=== PATIENT | male | born 1995 | race Caucasian/White ===

== ENCOUNTER 2022-09-30 18:58 | Emergency (ER) | payer MEDICAID, SELFPAY ==
[2022-09-30 19:13] VITALS: BP 129/83; PULSE 93; RESP 18; TEMP 36.9; O2SAT 95; BMI 22.0
--- NOTE | 2022-09-30 19:20 | ED.GENADULT ---
HPI - General Adult General Time Seen by Provider: 19:20 Date Seen: 09/30/22 Chief complaint: Cough Stated complaint: Asthma Attack Time Seen by Provider: 09/30/22 19:14 Source: patient Mode of arrival: ambulatory Limitations: no limitations History of Present Illness HPI narrative: 26-year-old male with history of asthma presents with shortness of breath for the last 2 months. He attributes this to working an a [employer] environment. Using his inhaler multiple times during the night. Denies chest pain. Has some cough and then had some blood streaking today which is prompting him to present to the emergency room. No leg swelling, no fevers. Related Data Home Medications Medication Instructions Recorded Confirmed albuterol sulfate 90 mcg/actuation 2 inhalation PRN 05/13/22 05/13/22 aerosol inhaler buprenorphine 2 mg-naloxone 0.5 mg 1 film sublingual DAILY 05/13/22 05/13/22 sublingual film bupropion HCl 75 mg tablet See Rx Instructions .Route .COMPLEX 05/13/22 05/13/22 fluoxetine 10 mg capsule 10 mg PO DAILY 05/13/22 05/13/22 fluticasone 100 mcg-salmeterol 50 1 inhalation BID 05/13/22 05/13/22 mcg/dose blistr powdr for inhalation guaifenesin 200 mg tablet 200 mg PO PRN 05/13/22 05/13/22 hydroxyzine pamoate 25 mg capsule 25 mg PO PRN 05/13/22 05/13/22 quetiapine 50 mg tablet 50 mg PO .Bedtime 05/13/22 05/13/22 Allergies Allergy/AdvReac Type Severity Reaction Status Date / Time No Known Allergies Allergy Unknown Verified 09/30/22 19:13 Review of Systems Status of ROS: Reports: 10 or more systems reviewed and unremarkable except as noted in History and below PFSH PFSH Medical History History of methicillin resistant Staphylococcus aureus infection History of smoking Social History Smoking Status: Current every day smoker What tobacco products do you use: cigarettes Smoking packs per day: 0.5 Smoking cigarettes per day: 10.0 Years smoked: 15 Smoking pack-years: 7.50 Do you use any of these nicotine containing products: None Second hand tobacco smoke exposure: No How often do you have a drink containing alcohol: never How often do you have six or more drinks on one occasion: Never AUDIT-C Alcohol total score: 0 Non-prescribed substance use: denies use service: No Exam Narrative: Exam Narrative: General: Well-developed and well-nourished, no acute distress Head: Atraumatic and normocephalic Eyes: Pupils are equal reactive, extraocular motions intact, conjunctiva clear ENT: External nose and ears are normal, posterior pharynx without erythema or exudate Neck: No midline cervical tenderness, full spontaneous range of motion the neck, trachea midline, no adenopathy Heart: Regular rate and rhythm no murmurs or thrills Lungs: Clear to auscultation bilaterally without wheezes or crackles. Patient with upper airway coarse expiratory breath sounds when asked to breathe deeply but silent when breathing, no stridor Abdomen: Soft, nontender, nondistended with active bowel sounds Musculoskeletal: No tenderness, deformity, or edema Neurologic: Awake, alert, and oriented x3, no gross focal neurologic deficits, cranial nerves intact as tested Psych: Mood and affect are appropriate Skin: No rashes Const: Vital Signs, click to edit/add: Vital Signs - 24 hr 09/30/22 19:13 09/30/22 20:00 Temperature 98.4 F Pulse Rate [Pulse Oximeter] 93 88 Respiratory Rate 18 18 Blood Pressure [Ri ght Upper Arm] 129/83 130/84 Pulse Oximetry 95 96 Oxygen Delivery Me thod Room Air Room Air Course Course Hospital Course: Patient seen and examined, prior records reviewed. Patient with history of asthma comes in with shortness of breath the last 2 months, blood-streaked sputum today which prompted visit. On exam here, vital is stable with no tachycardia or hypoxia, perc negative. Lungs are clear other than upper airway sounds which patient is able to silence when breathing normally. Chest x-ray is ordered along with DuoNeb. If chest x-ray is negative, plan to discharge with prednisone burst and albuterol inhaler, patient is to establish follow-up this sounds like his asthma may be very poorly controlled and he may need a controller medication. Reevaluation(s) Reevaluation #1: Chest x-rays negative, influenza, COVID, in our severe negatives well. Symptoms are most consistent with poorly controlled asthma, small volume of hemoptysis likely from bronchial irritation. Patient will be prescribed a new inhaler and started on prednisone, follow-up with primary care to work on asthma control and action plan. Time: 20:34 Vital Signs Vital signs: Initial Vital Signs Temperature 98.4 F 09/30/22 19:13 Temperature Source Temporal Artery Scan 09/30/22 19:13 Pulse Rate 93 09/30/22 19:13 Pulse Rhythm 09/30/22 19:13 Respiratory Rate 18 09/30/22 19:13 Blood Pressure 129/83 09/30/22 19:13 Blood Pressure Mean 98 09/30/22 19:13 Pulse Oximetry 95 09/30/22 19:13 Oxygen Delivery Method 09/30/22 19:13 Vital Signs Temperature 98.4 F 09/30/22 19:13 Pulse Rate 93 09/30/22 19:13 Respiratory Rate 18 09/30/22 19:13 Blood Pressure 129/83 09/30/22 19:13 Pulse Oximetry 95 09/30/22 19:13 Oxygen Delivery Method 09/30/22 19:13 Temperature 98.4 F 09/30/22 19:13 Pulse Rate 88 09/30/22 20:00 Respiratory Rate 18 09/30/22 20:00 Blood Pressure 130/84 09/30/22 20:00 Pulse Oximetry 96 09/30/22 20:00 Oxygen Delivery Method 09/30/22 20:00 Medical Decision Making Medical Records Medical records reviewed: Yes I reviewed the patient's medical records Lab Data Lab results reviewed: Yes I reviewed the patient's lab results Labs: Lab Results 09/30/22 Range/Units 19:22 SARS-CoV-2 (PCR) Negative SARS-CoV-2 (Negative) Influenza Type A (PCR) Negative PCR FLU A (Negative) Influenza Type B (PCR) Negative PCR FLU B (Negative) RSV (PCR) Negative PCR RSV (Negative) Imaging Data Chest x-ray: Attestation: I have reviewed the pertinent imaging results. My impression: No acute infiltrates or effusions, no pneumothorax, negative x-ray Discharge Plan Discharge Clinical Impression: Exacerbation of asthma, Poorly controlled persistent asthma Patient Disposition: Home, Self-Care Condition: Stable Instructions: Asthma (DC), How to Use a Metered-Dose Inhaler (ED) Additional Instructions: Take prednisone as prescribed. Use albuterol inhaler or nebulizer every 2 hours while awake for 24 hours, then every 3 hours while awake for 24 hours, then every 4 hours as needed Activity Level: No Restrictions Prescriptions: No Action buprenorphine-naloxone 2-0.5 mg film 1 film sublingual DAILY quetiapine 50 mg tablet 50 mg PO .Bedtime hydroxyzine pamoate 25 mg capsule 25 mg PO PRN albuterol sulfate 90 mcg/actuation HFA aerosol inhaler 2 inhalation PRN fluoxetine 10 mg capsule 10 mg PO DAILY bupropion HCl 75 mg tablet See Rx Instructions .ROUTE .COMPLEX Rx Instructions: Unknown; administer 6 hours apart fluticasone propion-salmeterol 100-50 mcg/dose blister with device 1 inhalation BID guaifenesin 200 mg tablet 200 mg PO PRN Follow Up/Referrals: Micah Lai MD [Primary Care Provider] - Stand Alone Forms: [employer] Info Instructions
--- NOTE | 2022-09-30 19:37 | CRLHL7_ITS ---
For Patients: As a result of the Cures Act, medical imaging exams and procedure reports are released immediately into your electronic medical record. You may view this report before your referring provider. If you have questions, please contact your health care provider. INDICATION: Hemoptysis. TECHNIQUE: Chest 2 views. COMPARISON: Chest x-ray from 09/21/2020. FINDINGS: Lungs: Clear lungs. No consolidation. Pleura: No pleural effusion or pneumothorax. Heart and Mediastinum: The cardiomediastinal silhouette is normal. The vessels are unremarkable. Bones: Unremarkable. IMPRESSION: No acute cardiopulmonary disease. Dictated by Andrew Barlow MD @ 09/30/2022 8:34:25 PM (Electronically Signed)
[2022-09-30] MEDS: predniSONE 20 MG TABLET 40 MG PO (19:43)
[2022-09-30] MEDS: IPRAT-ALBUT 0.5-2.5 MG/3 ML NEB 1 NEB IH (19:44)
[2022-09-30 20:00] VITALS: BP 130/84; PULSE 88; RESP 18; O2SAT 96
[2022-09-30 20:11] LABS: PCR FLU A Negative PCR FLU A (Negative); PCR FLU B Negative PCR FLU B (Negative); PCR RSV Negative PCR RSV (Negative)
[2022-09-30 20:23] LABS: SARS PCR* Negative SARS-CoV-2 (Negative)
== END 2022-09-30 21:02 | disposition home or self-care (01) ==
LOC: ED 20:42
PROVIDERS: Emergency Provider Family Medicine
DX: J45.901 Unspecified asthma with (acute) exacerbation (principal)
CPT/HCPCS: 71046; 87502; 87634; 87635; 94640; 99283; 99284; J7512

== ENCOUNTER 2022-11-28 11:45 | Outpatient (CLI) | payer MEDICAID, SELFPAY | END 2022-11-28 11:46 | disposition home or self-care (01) | LOC: AMB 11-30 09:04 | PROVIDERS: Visit Provider Family Medicine | DX: R45.851 Suicidal ideations (principal) | CPT/HCPCS: A0425; A0429 ==

== ENCOUNTER 2022-11-28 12:05 | Emergency (ER) | payer MEDICAID, SELFPAY ==
[2022-11-28 12:15] VITALS: BP 126/79; PULSE 122; RESP 16; TEMP 37.7; O2SAT 93; BMI 20.9
--- NOTE | 2022-11-28 13:02 | ED_ITS ---
HPI - General Adult General Chief complaint: Overdose Stated complaint: Overdose Time Seen by Provider: 11/28/22 12:18 Source: patient, family, EMS and police Mode of arrival: EMS Limitations: altered mental status (Substance abuse) History of Present Illness HPI narrative: 27-year-old male presents to the emergency department by EMS and police. EMS and please for called by housemates which per report had also been using opiates. Jayant admits to a longstanding history of injectable IV opiates. He reports that he is scheduled to start an inpatient drug treatment program tomorrow, his family reiterates that he missed that appointment and is not aware that he is no longer set to be enrolled. This was supposed to be an outpatient day program. He reports that he has attempted drawn treatment multiple times in the past. Mother arrives to the ED agitated and threatening to Sandrine us shortly after jayant's arrival. She reports that his friends called her to report that Jayant is depressed and that he is using injectable drugs to treat his depression. To me, Jayant denies this. He is answering questions appropriately, he does not remember saying any of these things. He states that he is in treatment for his depression and does feel like things are going pretty well with this. He says he still ?getting use to his new meds?. He is not feeling acutely ill today, denies any self injury. Denies prior hospitalizations for suicide attempt or ideation. He states that he was hospitalized for mood issues at age 16 or 17 at [facility] but he does not remember the specific details. He admits to regular use of IV injectable heroin and daily use of marijuana. He looks back to his home to try to see if there were any text that would of made his family more concerned. He denies any escalating family, relationship or other problems. He reports that he does have a significant other but states that they are ?on a break right now? because of his substance use. He reports that his significant other is ?clean?. He states that the last time that he used opiates was this morning at around 7:00 a.m., his mother states that it was around 10:00 a.m.. I did get a chance to briefly speak with the patient's psychiatrist. Patient's mother called her during my interview. Highlights the psychiatrist know that Jayant is not endorsing any suicidal ideation to me today. She has offered to speak with him. We will facilitate this. He states he has a history of psoriatic arthritis and depression, denies any other long-term health problems. He states that his current long-term medications are mirtazapine 30 mg at bedtime and albuterol 3 times a week. He also reports use of gabapentin 800 mg a couple of times per week for leg pain related to his psoriatic arthritis. Socially I am states that he lives with his parents, regular IV fentanyl verses heroin. Daily marijuana. Denies any recent alcohol use. He does not believe that he needs to be hospitalized for his moods at this time. ROS is negative times 12 systems per patient. Related Data Home Medications Medication Instructions Recorded Confirmed albuterol sulfate 90 mcg/actuation 2 inhalation PRN 05/13/22 05/13/22 aerosol inhaler buprenorphine 2 mg-naloxone 0.5 mg 1 film sublingual DAILY 05/13/22 05/13/22 sublingual film bupropion HCl 75 mg tablet See Rx Instructions .Route .COMPLEX 05/13/22 05/13/22 fluoxetine 10 mg capsule 10 mg PO DAILY 05/13/22 05/13/22 fluticasone 100 mcg-salmeterol 50 1 inhalation BID 05/13/22 05/13/22 mcg/dose blistr powdr for inhalation guaifenesin 200 mg tablet 200 mg PO PRN 05/13/22 05/13/22 hydroxyzine pamoate 25 mg capsule 25 mg PO PRN 05/13/22 05/13/22 quetiapine 50 mg tablet 50 mg PO .Bedtime 05/13/22 05/13/22 Remeron 11/28/22 albuterol sulfate 2.5 mg/3 mL mg 11/28/22 (0.083 %) solution for nebulization clonazepam 0.5 mg tablet mg 11/28/22 gabapentin 100 mg capsule mg 11/28/22 mirtazapine 11/28/22 Allergies Allergy/AdvReac Type Severity Reaction Status Date / Time No Known Allergies Allergy Unknown Verified 09/30/22 19:13 [facility] Medical History History of methicillin resistant Staphylococcus aureus infection History of smoking Social History Smoking Status: Current every day smoker What tobacco products do you use: cigarettes Smoking packs per day: 0.5 Smoking cigarettes per day: 10.0 Years smoked: 15 Smoking pack-years: 7.50 Do you use any of these nicotine containing products: None Second hand tobacco smoke exposure: No How often do you have a drink containing alcohol: never How often do you have six or more drinks on one occasion: Never AUDIT-C Alcohol total score: 0 Non-prescribed substance use: denies use and opiods/painkillers service: No Exam Const: Vital Signs, click to edit/add: Vital Signs - 24 hr 11/28/22 12:15 Temperature 100 F H Pulse Rate [Pulse Oximeter] 122 H Respiratory Rate 16 Blood Pressure [Ri ght Upper Arm] 126/79 Pulse Oximetry 93 Oxygen Delivery Me thod Room Air Documenting provider has reviewed patient's vital signs: yes General appearance: cooperative Other: Restless but makes good eye contact. Apologizes frequently for yawning. Says that he feels fatigued but can not answer my questions appropriately. Appears well nourished, well hydrated and well groomed. HENMT: Common normals: normocephalic and head/scalp atraumatic Head and scalp: normocephalic and atraumatic Mouth: oral and palatal mucosa normal Throat: posterior oropharynx normal Eye: Common normals: conjunctivae normal General eye: normal appearance of both eyes Conjunctiva: conjunctiva(e) normal Neck & C-Spine: Common normals: full ROM and no lymphadenopathy Chest: Common normals: inspection of chest normal Resp: Common normals: normal respiratory effort and no use of accessory muscles Other: Mild expiratory wheeze only but normal respiratory effort Cardio: Common normals: regular rate, regular rhythm, S1 normal heart sound, S2 normal heart sound, no murmurs and peripheral pulses 2+ throughout Rate: regular rate Rhythm: regular rhythm Heart sounds: S1 normal and S2 normal Peripheral pulses: pulses 2+ throughout GI: Common normals: Normal to inspection, nondistended, normoactive bowel sounds present and no hepatosplenomegaly Palpation: no hepatosplenomegaly Extremity: Common normals: normal to inspection and normal capillary refill Neuro: Motor exam: no tremor noted and no movement abnormalities noted Psych: Other: Restless but cooperative. No agitation. Insight is fair to limited judgment seems fair. Skin: Common normals: no wounds and no jaundice Course Vital Signs Vital signs: Initial Vital Signs Temperature 100 F H 11/28/22 12:15 Temperature Source Temporal Artery Scan 11/28/22 12:15 Pulse Rate 122 H 11/28/22 12:15 Respiratory Rate 16 11/28/22 12:15 Blood Pressure 126/79 11/28/22 12:15 Blood Pressure Mean 94 11/28/22 12:15 Blood Pressure Position Supine 11/28/22 12:15 Pulse Oximetry 93 11/28/22 12:15 Oxygen Delivery Method 11/28/22 12:15 Vital Signs Temperature 100 F H 11/28/22 12:15 Pulse Rate 122 H 11/28/22 12:15 Respiratory Rate 16 11/28/22 12:15 Blood Pressure 126/79 11/28/22 12:15 Pulse Oximetry 93 11/28/22 12:15 Oxygen Delivery Method 11/28/22 12:15 Temperature 100 F H 11/28/22 12:15 Pulse Rate 122 H 11/28/22 12:15 Respiratory Rate 16 11/28/22 12:15 Blood Pressure 126/79 11/28/22 12:15 Pulse Oximetry 93 11/28/22 12:15 Oxygen Delivery Method 11/28/22 12:15 Medical Decision Making MDM Narrative Medical decision making narrative: Reported suicidal ideation which patient is currently denying now that he is no longer ?high?. Will have patient speak with his psychiatrist. At this time I am not seeing enough criteria to hold him. Order dec consult, await their recommendations. Kimberly Cheema, patient's psychiatric provider was willing to consult with patient and myself over the phone. I was thankful for her insight. She agrees that he is not holdable at this time. She has cleared him for discharge. She agreed contact the patient's mother to relay this information. I have spoken with the patient, he would like to go home. He reiterates once again that he is not suicidal. He says that he will continue to seek drug treatment and has no additional concerns at this time. He is answering questions appropriately is reasonable as not exhibiting any type of psychosis or aggressive behavior. He will be discharged. Critical Care Time Critical Care Time Total Critical Care Time in Minutes: 45 (Spent in consult with family, patient's psychiatric provider, unable to attend the needs of other patients during this time.) Discharge Plan Discharge Clinical Impression: Acute substance intoxication, Substance induced mood disorder Patient Disposition: Home w/ Parent or Adult Additional Instructions: I agree with the assessment from your psychiatry provider, Kimberly Cheema. At this time, you do not meet criteria to be held against your will for mental health disease. Your not suicidal at this time. According to your mother, you have missed your appointment last week for substance disorder treatment. I would encourage you to re-explore this. You declined interventions for substance treatment at this time. You have been assessed and are cleared for discharge at this time. Activity Level: No Restrictions Discharge Diet: Regular Prescriptions: No Action buprenorphine-naloxone 2-0.5 mg film 1 film sublingual DAILY quetiapine 50 mg tablet 50 mg PO .Bedtime hydroxyzine pamoate 25 mg capsule 25 mg PO PRN albuterol sulfate 90 mcg/actuation HFA aerosol inhaler 2 inhalation PRN fluoxetine 10 mg capsule 10 mg PO DAILY bupropion HCl 75 mg tablet See Rx Instructions .ROUTE .COMPLEX Rx Instructions: Unknown; administer 6 hours apart fluticasone propion-salmeterol 100-50 mcg/dose blister with device 1 inhalation BID guaifenesin 200 mg tablet 200 mg PO PRN gabapentin 100 mg capsule Label Comments: TAKE 1 CAPSULE BY MOUTH THREE TIMES DAILY NEEDED FOR ANXIETY Remeron mirtazapine albuterol sulfate 2.5 mg /3 mL (0.083 %) solution for nebulization clonazepam 0.5 mg tablet Label Comments: TAKE 1 TABLET BY MOUTH ONCE A DAY NEEDED Follow Up/Referrals: Provider,Not a Local [Primary Care Provider] - Stand Alone Forms: [email or web address] Info Instructions
== END 2022-11-28 14:03 | disposition home or self-care (01) ==
PROVIDERS: Emergency Provider Family Medicine
DX: F19.94 Other psychoactive substance use, unspecified with psychoactive substance-induced mood disorder (principal)
CPT/HCPCS: 99282; 99284; 99291

== ENCOUNTER 2025-09-16 05:07 | Emergency (ER) | payer MEDICAID, SELFPAY ==
--- OUTSIDE RECORDS SUMMARY | 2010-11-10 03:00 | XMS_ITS | Continuity of Care Document ---
Author Organization [facility] Address [address] [address] [place] [address] Phone Care Team Providers Care Mandarin Tutor Name Role Phone Unavailable Unavailable Unavailable Allergies, Adverse Reactions, Alerts Substance Reaction Status Criticality No Known allergies Medications Medication Instructions Dosage Effective Dates (start - stop) Status Comments Wellbutrin XL 300 mg 24 hr Tab take 1 tablet (300MG) by oral route every day 300 MG - Active Abilify 15 mg Tab take 0.5 tablet (7.5MG) by oral route every day 7.5 MG - Active ondansetron HCl 8 mg Tab take 1 tablet (8MG) by oral route every day - Active multivitamin Tab take 1 Tablet by ORAL route every day 1.00 Tablet - Active Fish Oil 1,000 mg Cap take 2 Capsule by Oral route every day - Active AMBIEN (unknown strength) take 1 tablet by oral route every day at bedtime as needed Not Available - Active Allergy Shots unknown weekly shots - Active Nexium 40 mg Cap take 1 capsule (40MG) by oral route every day 40 MG - Active omeprazole 20 mg Cap, Delayed Release take 1 capsule (20MG) by oral route every day before a meal 20 MG - No Longer Active Procedures Procedure Date Offic Cons New/estab Mod [id number] Advance Directives Directive Yes / No Effective Date File Name Resuscitation Not Answered N/A N/A Life Support Not Answered N/A N/A Intubation Not Answered N/A N/A Antibiotics Not Answered N/A N/A IV Fluid Support Not Answered N/A N/A Tube Feed Not Answered N/A N/A Other Directive N/A N/A WARNING:The information contained in this section is historical and is provided for information only and does not constitute a legal document or any assurance that the information is still accurate. Please verify the information with the méndez of the legal document before using it for clinical purposes. Encounters Encounter Description Practice Location Reason(s) For Visit Diagnoses Date Provider Providers Copied on Encounter Offic Cons New/estab Mod [facility] [address] [address], [place], [place], [id number], tel:[phone] [facility] Diarrhea (chief complaint)N ausea (chief complaint) Vomiting Alone No Information Family History Family Member Type Diagnosis Age At Onset First degree family history Problem (finding) No histo ry of Crohn's Paternal grandfather Problem (finding) alcoholism First degree family history Problem (finding) No history of Colon Rectal Cancer First degree family history Problem (finding) No Family history of No history of Colon Polyps First degree family history Problem (finding) GERD First degree family history Problem (finding) No history of Ulcerative Colitis Payers Payer name Insurance type Covered constitution party ID Authoriza tion(s) [facility] [id number] Social History Type Description Quantity Date Captured Comments Alcohol Use Details Unknown Caffeine Use Details Unknown Tobacco Use Status No Information Smoking Status No Information Sex Male Chief Complaint And Reason For Visit From encounter dated '11/10/2010 09:00'. Diarrhea (chief complaint) Nausea (chief complaint) Reason For Referral Reason For Referral No Information History Of Present Illness Encounter Date Complaint History Of Prese nt Illness No Information Functional Status Date Functional Assessmen t No Information Medications Administered Medication Instructions Dosage Effective Dates (start - stop) Status Comments omeprazole 20 mg Cap, Delayed Release take 1 capsule (20MG) by oral route every day before a meal 20 MG Nicholas-18-2010 No Longer Active Instructions Date Instruction Additional Infor mation No Information Assessments Type Assessment Date No Information Patient Care Teams Name Effective Dates (start - stop) Status Members No Information
[2025-09-16 05:09] VITALS: BP 110/78; PULSE 88; RESP 16; TEMP 36.1; O2SAT 95; BMI 26.0
--- OUTSIDE RECORDS SUMMARY | 2025-09-16 05:09 | XMS_ITS | Clinical Summary ---
Author Organization [facility] Address [address] [place] [address] Care Team Providers Care Cardiothoracic Surgeon Name Role Phone Raiza José Unavailable Unavailable Raiza José Unavailable Unavailable Robby Issa MD Unavailable [phone] Benjamin Urena DO Primary Care Prov ider Allergies Active Allergy Reactions Criticality Noted Date Comments Ketorolac Hives 07/04/2011 Medications EPINEPHrine (EPIPEN) 0.3 mg/0.3 mL injection Inject 0.3 mg intramuscular. 0 Active albuterol-ipratr opium (DUONEB) (2.5-0.5 mg) in 3 mL NEBULIZATION solution 3 mL. 0 Active albuterol (PROVENTIL) 0.083 % neb solution 2 Active clonazePAM (KLONOPIN) 2 mg tablet TAKE 1-2 TABLETS BY MOUTH ONCE A DAY NEEDED AND SEPERATE DOSES BY AT LEAST 4 HOURS. TO LAST 30 DAYS 3 Active dextroamphetamin e-amphetamine (ADDERALL XR) 20 mg Extended-Release capsule Take 20 mg by mouth 2 times daily at 7 AM and Noon. 3 Active Suboxone 8-[address] 1 Film under the tongue once daily. 3 Active albuterol HFA 90 mcg/actuation inhalerIndicatio ns:Moderate persistent asthma, unspecified whether complicated (HC) INHALE 1 TO 2 PUFFS BY MOUTH EVERY 6 HOURS NEEDED FOR SHORTNESS OF BREATH 18 g 4 5 Active Dulera 100-5 mcg/actuation inhalerIndicatio ns:Moderate persistent asthma, unspecified whether complicated (HC) INHALE 2 PUFFS BY MOUTH TWICE DAILY 39 g 5 Active FLUoxetine (PROZAC) 10 mg capsule Take 1 Capsule by mouth once daily. 5 Active secukinumab (COSENTYX UnoReady) 300 mg/2 mL subcutaneous penIndications:P soriatic arthritis (HC) Inject 2 mL (300 mg) subcutaneous every 4 weeks. 5 Active triamcinolone 0.1 % ointmentIndicati ons:Dermatitis of both ear canals Apply topically to affected area(s) two times daily. 80 g 3 5 Active Active Problems Problem Noted Date Diagnosed Date Opioid use disorder, severe, in early remission 06/25/2025 Psoriatic arthritis 02/25/2024 Engages in vaping 02/25/2024 Nail deformity 02/25/2024 Opioid use disorder 04/13/2021 Allergic rhinitis due to pollen 10/06/2011 MRSA (methicillin resistant Staphylococcus aureus) infection 05/10/2010 Asperger's syndrome 02/25/2010 Tobacco use disorder 12/01/2009 Sinusitis 12/01/2009 Overview (02/25/2010): Recurrent; s/p sinus surgery and adenoidectomy circa 11/2009 Insomnia, idiopathic 06/16/2009 ASTHMA 11/03/2007 Overview (11/03/2007): moderate persistent Attention deficit disorder with hyperactivity(31 4.01) 06/21/2007 Allergic rhinitis, cause unspecified 06/21/2007 Resolved Problems Problem Noted Date Diagnosed Date Resolved Date Knee pain, right 12/28/2012 01/25/2023 Concussion 07/23/2011 01/25/2023 Concussion 05/05/2009 02/25/2010 Encounters Date Type Department Care Team Description 08/29/2025 Orders Only [facility] [address] [place] [address] Coco Singh MD <No scans attached> 08/09/2025 Telephone [facility] [address] [place] [phone] Radha Walker NP Appointment ([facility] intake appt canceled) 06/25/2025 11:10 AM CDT Office Visit [facility] [address] [place] [address] Mireya Shoemaker PA Concerns (Patient would like a referral for Mireya Shoemaker for phycology per [facility]. ) 06/25/2025 Travel 06/18/2025 Telephone [facility] [address] [place] [address] Pcp, No appt referral information. from Last 3 Months Immunizations Immunization Administration Dates Next Due COVID-19 vaccine (Ben-J&J) PF, MDV COVID-19 vaccine (Moderna 100mcg/0.5mL) PF, MDV 10/15/2021 DTP-HIB 01/16/1997, 6,02/23/1996,12/19 DTaP 04/23/1996,02/23/1996,1995 Hepatitis B (Peds) 04/23/1996,1995, 996 Hib Conjugate, Unspecified 04/23/1996,02/23/1996 ,1995 Inactivated Polio Vaccine 02/23/1996,1995 Influenza A (H1N1), Inactivated 09/10/2009 Influenza A (H1N1), Inactiva chris (Age >=3 Years) 09/10/2009 Influenza, IIV3 (Age >=3 years) 08/05/20 14,08/19/2010,07/03/2009,12/13 Influenza, IIV4 (=>6mos) MDV 09/01/2021 MMR 01/16/1997 Meningococcal Vaccine (Menactra) 06/12/2008 Oral Polio Vaccine 01/16/1997,02/23/1996, 996 Pneumococcal Poly,23-Valent (Pneumovax) 07/31/2010 Pneumococcal conj 13-Valent (Prevnar 13) 07/31/2010 Td (Age >=7 Years) 10/31/2005 Tdap 06/10/2021,06/12/2008,10/31/2005 Varicella Vaccine 06/12/2008,01/16/1997 Family History Medical History Relation Name Comments Asthma Father Ed Good Health Father Ed Psychiatric illness Father Ed possible ADHD Allergies Maternal Aunt Alcohol/Drug Maternal Grandfather Allergies Maternal Grandfather Good Health Mother Lorena Psychiatric illness Mother Lorena depresskaylee on-nortriptyline and Wellbutrin Allergies Paternal Grandmother Other Paternal Grandmother mggm ma cular degeneration Other Sister 2 macular degener ation Relation Name Status Comments Father Ed Alive Maternal Aunt Maternal Grandfather Mother Lorena Alive Paternal Grandmother Sister 1 Yaima Alive Sister 2 Social History Tobacco Use Types Packs/Day Years Used Date Smoking Tobacco: Former Cigarettes 0.5 10.4 1 - 01/18/2018 Smokeless Tobacco: Never Tobacco Cessation:Counseling Given: Yes Comments:5-7 cigs a day Alcohol Use Standard Drinks/Week Comments Not Currently 7 (1 standard drink = 0.6 oz pur e alcohol) PHQ-2 Answer Date Recorded PHQ-2 TOTAL SCORE 1 06/25/2025 Social Connections Answer Date Recorded Do you often feel lonely or isolated from those around you? 0 08/15/2024 Financial Resource Strain Answer Date R ecorded Difficulty of Paying Living Expenses 3 08/15/2024 Difficulty of Paying Living Expenses Not on file 08/15/2024 Food Insecurity Answer Date Recorded Do you worry your food will run out before you are able to buy more? 1 08/15/2024 Transportation Needs Answer Date Record ed Does lack of transportation keep you from medica l appointments? 1 08/15/2024 Does lack of transportation keep you from work, meetings or getting things that you need? 1 08/15/2024 Housing Stability Answer Date Recorded What is your housing situation today? 1 08/15/2024 Utilities Answer Date Recorded Do you have trouble paying f or utilities (for example, heat, electricity, water, phone)? 1 08/15/2024 Sex and Gender Information Value Date Recorded Sex Assigned at Not on file Legal Sex Male 5:39 AM HALL CLEANER Gender Identity Not on file Sexual Orientation Not on file Obstetrics History Last Filed Vital Signs Vital Sign Reading Time Taken Comments Blood Pressure 136/74 06/25/2025 11:15 AM CDT Pulse 97 06/25/2025 11:15 AM CDT Temperature 36.9 C (98.5 F) 08/15/2024 10:06 AM CDT Respiratory Rate 16 08/10/2023 6:40 PM CDT Oxygen Saturation 97% 06/25/2025 11: 15 AM CDT Inhaled Oxygen Concentration - - Weight 112.3 kg (247 lb 9.6 oz) 025 11:15 AM CDT Height 203.2 cm (6' 8) 08/15/2024 10:0 6 AM CDT Body Mass Index 27.2 08/15/2024 10:06 AM CDT Plan of Treatment Upcoming Encounters Date Type Department Care Team (Late st Contact Info) Description 10/08/2025 1:00 PM HALL CLEANER Office Visit [facility] [address] [facility] [place] [phone] Radha Walker, TRAFFIC REPRESENTATIVE [address] [facility] [place] [address] 10/14/2025 1:25 PM HALL CLEANER Office Visit [facility] [address] [facility] [place] [address] Benjamin Urena, [address] [facility] [place] [address] Health Maintenance Due Date Last Done Comments HPV series for age 9-45 (1 - Risk 3-dose SCDM series) 2022 Influenza Vaccine (#1) 2025 , 08/05/2014, 08/19/2010, Additional history exists BMI (ht and wt on same day) for age 18+ 08/15/2025 08/15/2024, 02/20/2024, 08/10/2023, Additional history exists Depression screening for age 12+ 06/25/2026 06/25/2025, 01/25/2023, 09/30/2020, Additional history exists Tetanus booster 06/10/2031 06/10/2021, 05/25, 10/31/2005, Additional history exists Pneumococcal series for age 6-49 (3 of 3 - PCV20 or PCV21) 2045 07/31/2010, 07/31/2010 RSV vaccine for adults or (1 - 1-dose 75+ series) 2070 Hepatitis B series for 19+ Completed 04/23, 1995, 1995 HIV for age 15-65 Completed 12/14/2018, 09/23/2014 Hepatitis C screening for ag e 18-79 Completed 12/14/2018 Procedures Procedure Name Priority Date/Time Associated Diagnosis Comments ANTI HIV 1/2 Routine 12/14/2018 11:42 AM HALL CLEANER Screen for STD (sexually transmitted disease) ANTI HCV Routine 12/14/2018 11:42 AM HALL CLEANER Screen for STD (sexually transmitted disease) from Last 3 Months or Most Recently Relevant to Health Maintenance Results * ANTI HCV (12/14/2018 11:42 AM HALL CLEANER) Pathologist [facility] HEPATITIS C ANTIBODY Non-React ernestina Non-React ernestina 12/14/2018 5:03 PM HALL CLEANER [facility] Comment:Antibodies to HCV no t detected; does not exclude the possibility of exposure to HCV. Blood BLOOD SPECIMEN / Unknown Venipuncture / Unknown 12/14/2018 11:42 AM HALL CLEANER 12/14/2018 11:46 AM HALL CLEANER Micah Lai MD SEND OUTS [facility] [address] [place] [address], * ANTI HIV 1/2 (12/14/2018 11:42 AM HALL CLEANER) Pathologist [facility] HIV-1/HIV-2 ANTIBODY Non-Reacti ve Non-Reacti ve 12/14/2018 5:06 PM HALL CLEANER [facility] Comment:HIV-1 p24 and HIV-1/ HIV-2 Ab not detected. Blood BLOOD SPECIMEN / Unknown Venipuncture / Unknown 12/14/2018 11:42 AM HALL CLEANER 12/14/2018 11:46 AM HALL CLEANER us Micah Lai MD SEND OUTS Final Resu lt [facility] [address] [place] [address], [place] from Last 3 Months or Most Recently Relevant to Health Maintenance Additional Health Concerns Infection Onset Date Last Indicated MRSA 07/04/2011 07/04/2011 Insurance [facility] [place] [id number] Care Teams Cardiothoracic Surgeon Relationship Specialty Start Date End Date Benajmin Urena DO [address] [place] [address] PCP - General Family Practice 01/25/23 Raiza José Nurse Practitioner Registered Nurse 03/27/12 Raiza José Provider Registered Nurse 06/16/12 Robby Issa MD Surgery - Otolaryngology 01/17/15
--- OUTSIDE RECORDS SUMMARY | 2025-09-16 05:09 | XMS_ITS | Patient Health Record ---
Author Organization [facility] Address [address] [facility] [address] [place], [place] [id number] Care Team Providers Care Regional Engineer Name Role Phone Janet SOSA, Adrián Primary Care Provider Unavail able Latha SOSA, Pj Unavailable [phone] Allergies Allergen (clinical drug ingredient) Drug/Non Drug Allergy documented on EMR Reaction Allergy Type Onset Date Status prednisone intolerance (uncoded) significant tachycardia Allergy Active Toradal (uncoded) Unknown Allergy Ac tive Reason For Referral No Information Medications Medication SIG (Take, Route, Frequency, Duration) Notes Start Date End Date Status Dulera (200-5) 200-5 MCG/ACT 2 puffs twice daily 04/17/2012 Active Abilify at bedtime Active Omeprazole 20mg 20 mg orally daily Active Claritin 10mg 1 by mouth daily Active Albuterol HFA 108 (90 Base) MCG/ACT 2 puffs inhalation every 4 hrs as needed Active Albuterol Neb Pre-Mix 2.5mg (2.5 MG/3ML) 0.083% 1 vial inhalation every 4 hrs as needed Active Azithromycin 250mg 500mg day one, 250 m g days 2-5 orally daily 04/14/2012 Active Advair (115-21 HFA) 115-21 MCG/ACT 2 puffs twice a day Active Social History Tobacco Use: Social History Observation Description Date Details (start date - stop date) Current Smoker NA - NA Tobacco Question Answer Notes status: current smoker (every day) Problems Problem Type SNOMED Code ICD Code Onset Dates Problem Status W/U Status Risk Notes Problem Gastroesophageal reflux disease (791837657) GE Reflux (530.81) Active confirmed Problem Asthma (959317904) Asthma (493.90) Active confirmed Problem Allergic rhinitis (25691229) Allergic rhinitis (477.9) Active confirmed Problem Bronchitis (61348642) Bronchitis (490) Active confirmed Plan Of Treatment No Information Medical (General) History Medical History History ICD Code Clinical sinusitis ADHD/Asperger's Acute superimposed upon persistent asthm a Seasonal and perennial allergies GE reflux - intermittent Environmental issues - school and social exposures, occasional ETS exposure Recurrent concussions Surgical History Surgery Date(Month/Year) Adenoidectomy
--- OUTSIDE RECORDS SUMMARY | 2025-09-16 05:09 | XMS_ITS | Clinical Summary ---
Author Organization [facility] Address [address] [place] [address] Care Team Providers Care Automatic Paint Sprayer Operator Name Role Phone Pcp, Pt Declines Primary Care Provider [phone] Source Comments You are receiving this document as you are listed as the primary care provider,follow-up provider, or the patient has been referred to you for consultation.This is in compliance with the Medicare and[facility] Hospital[facility] EHR Incentive Program,which states Providers who transition their patient to another setting of careor provider of care or refers their patient to another provider of care shouldprovide summary care record for each transition of care or referral. Apozy Allergies Active Allergy Reactions Criticality Noted Date Comments Ketorolac 11/16/2011 Ondansetron 06/23/2012 Review Contrast Media 09/21/2010 PN: JOCELYNE CM1: >>> NO CONTRAST ADVERSE REACTION <<< Reaction : Medications HYDROcodone-acet aminophen (AKA VICODIN,LORTAB) 5-500 MG tablet Take 1 tablet by mouth every 6 hours as needed. 06/23/2012 Active QUEtiapine Fumarate (SEROQUEL OR) Take by mouth. 06/23/2012 Active fluticasone-salm eterol (AKA ADVAIR HFA) 45-21 mcg/actuation inhaler Inhale 2 puffs 2 times daily. Rinse mouth/Gargl e after use 06/23/2012 Active guanFACINE 4 MG TB24 24 hour release tablet Take 4 mg by mouth nightly. 06/23/2012 Active WIXELA INHUB 100-50 MCG/DOSE diskus inhaler INL 1 PUFF PO Q 12 H 3 03/04/2019 Active Active Problems No known active problems Immunizations Immunization Administration Dates Next Due DTP-Hib (Tetramune) 01/16/1997,04/23/1996,1995,1995 HepB Ped/Adol (0-18 yrs) 04/23/1996,1995,0 1995 MMR 01/16/1997 OPV, Trivalent (Orimune or tOPV) 01/16/1997,11/1995,1995 Varicella 01/16/1997 Family History Medical History Relation Name Comments Anesthesia Reaction Mother Heart Disease Paternal Grandfather Rheumatologic Disease Negative Family History Relation Name Status Comments Mother Paternal Grandfather Social History Tobacco Use Types Packs/Day Years Used Date Smoking Tobacco: Every Day Sex and Gender Information Value Date Recorded Sex Assigned at Not on file Legal Sex Male 6:21 AM CDT Gender Identity Not on file Sexual Orientation Not on file Last Filed Vital Signs Vital Sign Reading Time Taken Comments Blood Pressure - - Pulse - - Temperature 36.8 C (98.2 F) 03/16/2019 2:24 PM CDT Respiratory Rate - - Oxygen Saturation - - Inhaled Oxygen Concentration - - Weight 98 kg (216 lb) 03/16/2019 2:24 PM CDT Height 200.7 cm (6' 7) 03/16/2019 2:24 PM CDT Body Mass Index 24.33 03/16/2019 2:24 PM CDT Plan of Treatment Health Maintenance Due Date Last Done Comments Hep C Screening (Preventive Services) 1995 IPV (Polio) Vaccine (4 of 4 - 4-dose series) 1999 01/16/1997, 02/23/1996, 1995 HIV Screening (Preventive Services) 2011 Adult Preventive Visit 2013 HPV Vaccine (1 - 3-dose SCDM series) 2022 COVID-19 Vaccine ( season) 2025 05/27/2021 Influenza Vaccine (#1) 2025 4, 08/19/2010, 07/03/2009, Additional history exists DTaP/Tdap/Td Vaccine (8 - Tdap) 06/10/2031 06/10/2021, 06/12/2008, 10/31/2005, Additional history exists Zoster/Shingles Vaccine (1 of 2) 2045 HepB Vaccine Completed 04/23/1996, 11/25, 1995 Hib Vaccine Completed 01/16/1997, 10/1995, 02/23/1996, Additional history exists MCV4 Vaccine Aged Out 06/12/2008 No longer eligi ble based on patient's age to complete this topic Varicella Vaccine Completed 06/12/2008, 01/16/1997 Pneumococcal Vaccine Aged Out 07/31/2010, 07/31/20 10 No longer eligible based on patient's age to complete this topic HepA Vaccine Aged Out No longer eligi ble based on patient's age to complete this topic Meningococcal B Vaccine Aged Out No l onger eligible based on patient's age to complete this topic Care Teams Automatic Paint Sprayer Operator Relationship Specialty Start Date End Date Pcp, [place] [address] PCP - General 03/16/19
--- NOTE | 2025-09-16 06:15 | ED.NURSE ---
multiple attempts to remove ring. ring finally did get removed from finger. CMS to finger intact. Some swelling to finger after removal.
--- NOTE | 2025-09-16 08:01 | ED.GENADULT ---
HPI - General Adult General Chief complaint: Unspecified Complaint, Adult Stated complaint: ring stuck on finger Time Seen by Provider: 09/16/25 05:14 Source: patient Mode of arrival: ambulatory Limitations: no limitations History of Present Illness HPI narrative: 29-year-old male presents with his preschool son to the emergency department with a ring very tightly to stuck on his index finger, left side. He typically wears of on a different finger any thinks he must have switched it in a sleepy Haze overnight and woke up with severe pain in the left index finger. Denies any intoxication. He reports that he thinks the metal is tungsten, he bought it from an animal services officer. It is very thick. No fevers. No prior surgery on this finger, no other affected areas. Thinks that is probably been on for about 2 hours at the time of arrival. He has been unable to get it loosened with prying it at home. Reports benign past medical history, no major long-term health problems. Prescriptions for bupropion, ibuprofen, fluoxetine, Vistaril, Seroquel Remeron and albuterol reviewed. No known drug allergies. ROS is notable for the musculoskeletal symptoms only, denies other musculoskeletal, skin, neurological changes. Related Data Home Medications ?Medication ?Instructions ?Recorded ?Confirmed albuterol sulfate 90 mcg/actuation 2 inhalation PRN 05/13/22 05/13/22 aerosol inhaler buprenorphine 2 mg-naloxone 0.5 mg 1 film sublingual DAILY 05/13/22 05/13/22 sublingual film bupropion HCl 75 mg tablet See Rx Instructions .Route .COMPLEX 05/13/22 05/13/22 fluoxetine 10 mg capsule 10 mg PO DAILY 05/13/22 05/13/22 fluticasone 100 mcg-salmeterol 50 1 inhalation BID 05/13/22 05/13/22 mcg/dose blistr powdr for inhalation guaifenesin 200 mg tablet 200 mg PO PRN 05/13/22 05/13/22 hydroxyzine pamoate 25 mg capsule 25 mg PO PRN 05/13/22 05/13/22 quetiapine 50 mg tablet 50 mg PO .Bedtime 05/13/22 05/13/22 Remeron 11/28/22 albuterol sulfate 2.5 mg/3 mL mg 02/05/23 (0.083 %) solution for nebulization clonazepam 0.5 mg tablet mg 11/28/22 gabapentin 100 mg capsule mg 11/28/22 mirtazapine 11/28/22 Allergies Allergy/AdvReac Type Severity Reaction Status Date / Time No Known Allergies Allergy Unknown Verified 09/30/22 19:13 [facility] Medical History (Updated 09/16/25 @ 06:06 by Leatha Andrade MD) History of smoking ?Z87.891 - Personal history of nicotine dependence (ICD-10) History of methicillin resistant Staphylococcus aureus infection ?Z86.14 - Personal history of Methicillin resistant Staphylococcus aureus infection (ICD-10) Social History Smoking Status: Current every day smoker What tobacco products do you use: cigarettes Smoking packs per day: 0.5 Smoking cigarettes per day: 10.0 Years smoked: 15 Smoking pack-years: 7.50 Do you use any of these nicotine containing products: None Second hand tobacco smoke exposure: No How often do you have a drink containing alcohol: never How often do you have six or more drinks on one occasion: Never AUDIT-C Alcohol total score: 0 Non-prescribed substance use: denies use and opiods/painkillers service: No Exam Const: Vital Signs, click to edit/add: Vital Signs - 24 hr 09/16/25 05:09 Temperature 97.0 F L Pulse Rate [Right Pulse Oximeter] 88 Respiratory Rate 16 Blood Pressure [Ri ght Upper Arm] 110/78 Pulse Oximetry 95 Oxygen Delivery Me thod Room Air Documenting provider has reviewed patient's vital signs: yes Other: Mildly anxious about the ring but very redirectable and reasonable, even helpful at times HENMT: Common normals: normocephalic, moist oral mucous membranes and oropharynx normal Head and scalp: normocephalic Face and sinus: normal facial exam Eye: Common normals: conjunctivae normal General eye: normal appearance of both eyes Conjunctiva: conjunctiva(e) normal Resp: Common normals: normal respiratory effort Effort & inspection: able to speak in complete sentences Extremity: Other: Left index finger has a very tight incredibly thick dense metal ring applied at the proximal phalanx of the left index finger. My nurse has been trying to cut through this with the motorized sanjeev blade cutter and is not making any significant progress. He still has good capillary refill in the fingertips and normal range of motion at the MCP and interphalangeal joints. No other fingers are affected. Normal DP pulses. Psych: Appearance: grossly normal Attitude: engaged Mood and affect: euthymic mood Skin: Common normals: no rashes or lesions noted General skin exam: no rashes or lesions noted Course Course ED Course: 29-year-old male with stuck ring. Atypical metal. I did attempt for 30 minutes to try to cut through this ring as well and made less than 10% progress even with the motorized devices and changing the blade twice. Counseled patient that I do not think we are going to be able to get through this in the middle of the night, recommended string method instead. Using 2-0 nylon suture, 1 end of the 30 in threaded is tucked underneath the ring with a 2 in tail and then the remaining thread is wrapped about every 2 mm circumferentially around the finger over the level of the proximal knuckle. Fingers then looped up with a good emboli and lotion and the ring is on threaded using the string and with still quite a bit of difficulty ultimately over that proximal knuckle and then easily off of the rest of the finger. He was very stoic through the process but I could tell it was uncomfortable for him. At the end of the removal, the ring is return to him. He does have normal range of motion of the finger, normal capillary refill and sensation in the pad of the finger. He is very thankful and grateful for the removal. Counseled on use of Tylenol and ibuprofen as needed for discomfort. He may have some sensory nerve damage but that should be temporary and resolved within a couple of weeks. Any severe symptoms or movement deficits would warrant ED re-evaluation. He verbalizes understanding and agreement. Vital Signs Vital signs: Initial Vital Signs Temperature 97.0 F L 09/16/25 05:09 Temperature Source Temporal Artery Scan 09/16/25 05:09 Pulse Rate 88 09/16/25 05:09 Pulse Rhythm Regular 09/16/25 05:09 Respiratory Rate 16 09/16/25 05:09 Blood Pressure 110/78 09/16/25 05:09 Blood Pressure Mean 88 09/16/25 05:09 Blood Pressure Position Sitting 09/16/25 05:09 Pulse Oximetry 95 09/16/25 05:09 Oxygen Delivery Method Room Air 09/16/25 05:09 Vital Signs Temperature 97.0 F L 09/16/25 05:09 Pulse Rate 88 09/16/25 05:09 Respiratory Rate 16 09/16/25 05:09 Blood Pressure 110/78 09/16/25 05:09 Pulse Oximetry 95 09/16/25 05:09 Oxygen Delivery Method Room Air 09/16/25 05:09 Temperature 97.0 F L 09/16/25 05:09 Pulse Rate 88 09/16/25 05:09 Respiratory Rate 16 09/16/25 05:09 Blood Pressure 110/78 09/16/25 05:09 Pulse Oximetry 95 09/16/25 05:09 Oxygen Delivery Method Room Air 09/16/25 05:09 Discharge Plan Discharge Clinical Impression: Ring avulsion injury of finger Patient Disposition: Home, Self-Care Condition: Improved Additional Instructions: It is common for there to be some numbness, stiffness and pain in the finger for the next few days. It is okay to use Tylenol and/or ibuprofen as needed. If you have complete loss of function, please return to the emergency room. Try to rest the hand for the most part today but you should be able to return to typical duties tomorrow. Activity Level: Activity as Tolerated Discharge Diet: Regular Prescriptions: No Action buprenorphine-naloxone 2-0.5 mg film 1 film sublingual DAILY quetiapine 50 mg tablet 50 mg PO .Bedtime hydroxyzine pamoate 25 mg capsule 25 mg PO PRN albuterol sulfate 90 mcg/actuation HFA aerosol inhaler 2 inhalation PRN fluoxetine 10 mg capsule 10 mg PO DAILY bupropion HCl 75 mg tablet See Rx Instructions .ROUTE .COMPLEX Rx Instructions: Unknown; administer 6 hours apart fluticasone propion-salmeterol 100-50 mcg/dose blister with device 1 inhalation BID guaifenesin 200 mg tablet 200 mg PO PRN gabapentin 100 mg capsule Patient Comments: TAKE 1 CAPSULE BY MOUTH THREE TIMES DAILY NEEDED FOR ANXIETY Remeron mirtazapine albuterol sulfate 2.5 mg /3 mL (0.083 %) solution for nebulization clonazepam 0.5 mg tablet Patient Comments: TAKE 1 TABLET BY MOUTH ONCE A DAY NEEDED Follow Up/Referrals: Provider,Not a Local [Primary Care Provider, Family Practice] Stand Alone Forms: Photo[employer] Info Instructions
== END 2025-09-16 06:16 | disposition home or self-care (01) ==
LOC: ED 06:08
PROVIDERS: Emergency Provider Family Medicine
DX: S60.441A External constriction of left index finger, initial encounter (principal); W49.04XA Ring or other jewelry causing external constriction, initial encounter
CPT/HCPCS: 99283